=== PATIENT | female | born 1990 | race Caucasian/White ===

== ENCOUNTER 2024-11-23 15:18 | Outpatient (AMB) | payer OTHER, SELFPAY ==
--- NOTE | 2024-11-23 15:22 | MHC.OFFVIS ---
Vital Signs 11/23/24 15:24 Height 5 ft 4.17 in Weight 214 lb 8 oz BMI 36.6 BP 124/86 Blood Pressure Location Lt brachial Position Sitting Pulse 69 Pulse Source Pulse Oximeter Pulse Oximetry (%) 98 Oxygen Delivery Method Room Air Intake Visit Reasons: Obstructive sleep apnea Allergies amlodipine Allergy (Intermediate, Verified 11/23/24 15:27) Palpitations cefaclor (From Ceclor) Allergy (Intermediate, Verified 11/23/24 15:27) Hives HPI HPI Obstructive sleep apnea: Details: Janelle is a pleasant 34 year old female, never smoker, with underlying HTN. She was referred by PCP for pulmonary evaluation due to suspected sleep apnea. She has never had a sleep study before, but a recent hospital visit for hypertension revealed oxygen desaturation into the 70s upon falling asleep, accompanied by snoring and choking episodes. The patient reports lifelong snoring described as loud, with worsening over time, and poor sleep quality characterized by frequent awakenings and daytime somnolence. The patient has a history of hypertension, which was diagnosed during a hospital visit in June. She experiences constant morning headaches, which have improved with blood pressure medication. The patient reports respiratory symptoms, including shortness of breath and coughing, which have persisted since a COVID-19 infection in May 2019. Although does recall dyspnea with exertion as a child, never diagnosed with asthma. She has a history of exposure to secondhand smoke and mold, which may contribute to her respiratory issues. Recent CXR 06/2024 unremarkable. The patient has a family history of asthma and reports seasonal allergies, which were not thoroughly tested in childhood. [facility] Social History (Updated 11/23/24 @ 15:26 by Karlee Graham [facility]) Patient Tobacco Use Status: Never used Tobacco Review of Systems Const Denies chills, Denies excessive sweating, Denies fever(s) and Denies night sweats Eyes Denies dry eyes, Denies irritation and Denies itchy eyes ENT Reports Normal hearing present, Denies nasal congestion, Denies nasal discharge, Denies post nasal drip and Denies sore throat Card Denies chest pain, Denies chest pain at rest, Denies chest pain with activity, Denies claudication, Denies leg edema, Denies orthopnea and Denies paroxysmal nocturnal dyspnea Resp Denies chest congestion, Denies excessive phlegm production, Denies pain on inspiration, Denies pain with cough, Denies stridor and Denies wheezing Musc Denies myalgias Neuro Reports Normal hearing present Endo Denies excessive sweating Jared/Lymph Denies lymphadenopathy Aller/Immun Denies itchy eyes, Denies seasonal rhinorrhea and Denies wheezing Physical Exam Vital Signs: Last Vital Signs Pulse 69 11/23/24 15:24 BP 124/86 11/23/24 15:24 Pulse Ox 98 11/23/24 15:24 Oxygen Delivery Method Room Air 11/23/24 15:24 BMI result Body Mass Index 36.6 Const General: cooperative, healthy appearing, comfortable, no acute distress, well developed and alert Nutritional Appearance: obese Orientation/consciousness: patient oriented x3 Limitations: no limitations HEENT Head: Yes normal to inspection, Yes normocephalic and Yes atraumatic Ears: hearing grossly normal bilaterally and external ears normal Eyes General: appearance normal, both eyes and all related structures Eyelids: Yes eyelids normal Sclerae: sclerae normal EOM: EOMs intact bilaterally Neck Neck: Yes normal visual inspection and Yes no lymphadenopathy Lymphatic: no lymphadenopathy noted Chest Chest palpation & inspection: normal inspection of the chest Resp Effort & Inspection: normal respiratory effort, able to speak in complete sentences, no audible wheezes, no cough, no stridor, not tachypneic, no tripod positioning and no use of accessory muscles Auscultation: clear to auscultation bilaterally Cardio Jugular venous distension: no JVD Rate: regular rate Rhythm: regular rhythm Skin Other: warm, dry General skin exam: no rashes or lesions noted Neuro General: patient oriented x3 Cranial nerves: Yes Normal hearing present Cognition (Neuro): normal cognition Gait exam (Neuro): Normal gait present Extrem General: Yes normal to inspection, Yes capillary refill normal, Yes no clubbing, cyanosis or edema and Yes no pedal edema Psych Appearance: grossly normal and well kempt Speech and movement: Normal speech and movement present and Clear speech present Affect: normal affect Attitude: cooperative Thought process: Normal thought process present Thought content: Normal thought content present Insight: Good insight present (Psych) Judgement: Good judgement present (Psych) Assessment & Plan Assessment & Plan (1) Daytime somnolence: Code(s): R40.0 - Somnolence Category: Medical (2) Witnessed episode of apnea: Code(s): R06.81 - Apnea, not elsewhere classified Category: Medical (3) Dyspnea on exertion: Code(s): R06.09 - Other forms of dyspnea Category: Medical (4) Environmental allergies: Code(s): Z91.09 - Other allergy status, other than to drugs and biological substances Category: Medical Plan Janelle presents for pulmonary evaluation for ongoing symptoms suggestive of HILDA. The patient will undergo a home sleep study to confirm the diagnosis of sleep apnea. If the study is positive, treatment options include CPAP therapy or an in-lab sleep study for further evaluation depending on results. A PFT will be scheduled to evaluate for asthma, given the patient's respiratory symptoms and family history.The patient reports seasonal allergies and has been advised to undergo allergy testing to identify specific allergens that may be triggering respiratory symptoms. All questions were answered and patient is in agreement of plan. Will follow up to review results or sooner if needed. Orders: Orders RT home sleep study Today R06.81 - Apnea, not elsewhere classified, R40.0 - Somnolence PFT pulmonary function test Today R06.09 - Other forms of dyspnea Coding Level of Care Code New Pt Level 4 (74178) Diagnoses Daytime somnolence R40.0 Witnessed episode of apnea R06.81 Dyspnea on exertion R06.09 Environmental allergies Z91.09
[2024-11-23 15:24] VITALS: BP 124/86; PULSE 69; O2SAT 98; BMI 36.6
== END 2024-11-23 15:57 | disposition home or self-care (01) ==
LOC: HO.HPSW 15:18
PROVIDERS: PCP Family Medicine; Visit Provider Nurse Practitioner Family
DX: R40.0 Somnolence (principal); R06.81 Apnea, not elsewhere classified; R06.09 Other forms of dyspnea; Z91.09 Other allergy status, other than to drugs and biological substances
CPT/HCPCS: 99204

== ENCOUNTER 2025-01-01 15:38 | Outpatient (REF) | payer OTHER, SELFPAY ==
--- OUTSIDE RECORDS SUMMARY | 2024-12-29 23:59 | XMS_ITS | Continuity of Care Document ---
Author Organization [facility] Address [address] [place] [address]- Care Team Providers Care Milk Bottler Name Role Phone Jean RAVI, Elise Miramontes Primary Care Physician Encounter [facility] Date(s): 11/29/24 - 12/29/24 [facility]/[address] [address]- Encounter Type: Triage Allergies, Adverse Reactions, Alerts Substance Criticality Severity Reaction Reaction Severity Status Ceclor Active Mushrooms 1 Active amLODIPine Unable to assess criticality Persistent Moderate Active Kiwi 2 Active 1severe abd pain 2severe abd pain Immunizations Given and Recorded Vaccine Date Status Refusal Reason SARS-CoV-2 (COVID-19) mRNA-1273 vaccine 03/06/21 R ecorded SARS-CoV-2 (COVID-19) mRNA BNT-162b2 vac 07/07/20 Recorded SARS-CoV-2 (COVID-19) mRNA BNT-162b2 vac 06/15/20 Recorded Medications famotidine 10 mg oral tablet 1 tablet = 10 mg, By Mouth, 2 times a day, 1 hour before meals, # 60 tablet, 0 Refills, Maintenance, 11/06/24 2:57:00 PM EDT, Tablet, [facility]/pharmacy #[id number], Partial fill upon patient request if the prescription is for a schedule II opioid drug., 163, cm, 11/06/24 14:34:00 EDT, Height, 101.1, kg, 10/16/24 10:08:00 EDT, Dry Weight Start Date: 11/06/24 Stop Date: 12/06/24 Status: Ordered Medication Dispense Status: Completed Quantity: 60.0 Unit: tablet Total Allowed Fills: 1 Fills Dispensed: 0 Indications: Unspecified abdominal pain; levothyroxine 0.1 mg oral tablet 1 tablet = 100 mcg, By Mouth, Daily, with plenty of water on an empty stomach, # 30 tablet, 3 Refills, Maintenance, 12/19/24 5:39:00 PM EDT, Tablet, [facility]/pharmacy #[id number], Partial fill upon patient request if the prescription is for a schedule II opioid drug., 163, cm, 12/19/24 17:19:00 EDT, Height, 99.6, kg, 11/16/24 15:23:00 EDT, Dry Weight Start Date: 12/19/24 Stop Date: 04/18/25 Status: Ordered Medication Dispense Status: Completed Quantity: 30.0 Unit: tablet Total Allowed Fills: 4 Fills Dispensed: 0 Indications: Hypothyroidism, unspecified; metoprolol 25 mg oral tablet, extended release 25 mg, 1, tablet, By Mouth, 2 times a day, do not crush or chew, # 180 tablet, Refills 1, Tot. Refills 1, Maintenance, 11/30/24 11:22:00 AM EDT, Route to Pharmacy Electronically, [facility]/pharmacy #[id number], Partial fill upon patient request if the prescription is for a schedule II opioid drug., 163, cm, 11/16/24 15:23:00 EDT, Height, 99.6, kg, 11/16/24 15:23:00 EDT, Dry Weight Start Date: 11/30/24 Stop Date: 05/29/25 Status: Ordered Medication Dispense Status: Completed Quantity: 180.0 Unit: tablet Total Allowed Fills: 2 Fills Dispensed: 0 Indications: Essential (primary) hypertension; Palpitations; Mirena 52 mg intrauterine device 1 each = 52 mg, Once, 0 Refills, Maintenance, 11/27/18 12:21:08 PM EDT Start Date: 11/27/18 Status: Ordered Medication Dispense Status: Completed Total Allowed Fills: 1 Fills Dispensed: 0 Problem List Condition Confirmation Course Effective Dates Status H ealth Status Informant HTN (hypertension) Confirmed Active Hypothyroidism Confirmed Active Elevated blood pressure reading Confirmed Active Severe obesity (BMI 35.0-39.9) with comorbidity Confirmed Active Social History Social History Type Response Smoking Status Never (less than 100 in lifetime) entered on: 11/27/18 Sex Sex Representation Female (finding) Patient Care team information Care Team Personnel Name: Elise Pena NP Position: S PCO Associate Professional Member Role: PCP Address: [address] [place] [address] Telecom: Care Team Related Persons Name: GILDARDO NICHOLS Name: JESSICA MENCHACA Insurance Providers Guarantor name: ROWAN Health Plan Information #: 1 Payer: [facility] SELECT PPO Payer Identifier: ROWAN Member Number: [id number] Group Number: [id number] Subscriber Identifier: Relationship to Subscriber: self Coverage Type: NA Coverage Verification Date: Telecom: Address: Health Plan Information #: 2 Payer: [facility] SELECT HMO Payer Identifier: ROWAN Member Number: [id number] Group Number: [id number] Subscriber Identifier: Relationship to Subscriber: self Coverage Type: Commercial Managed Care - HMO Coverage Verification Date: Telecom: Address:
--- NOTE | 2025-01-01 16:04 | PFT_ITS ---
Flows: FEV1: 108 % of predicted at 3.43 L FVC: 116 % of predicted at 4.40 L FEV1/FVC: 78 % Bronchodilator response: Present Volumes: Total lung capacity: 104 % of predicted at 5.38 L Residual volume: 98 % of predicted at 1.18 L Slow vital capacity: 105 % of predicted at 4.20 L Expiratory reserve volume: 68 % of predicted at 0.88 L Diffusion capacity: Normal Impression: No obstructive or restrictive ventilatory defect. Positive bronchodilator response. Decreased expiratory reserve volume suggests extrathoracic restriction likely secondary to abdominal obesity. MTDD
[2025-01-01 16:49] VITALS: PULSE 75
== END 2025-01-01 15:39 | disposition home or self-care (01) ==
LOC: HO.RESP 15:38
PROVIDERS: PCP Family Medicine; Visit Provider Nurse Practitioner Family
DX: R06.09 Other forms of dyspnea (principal)
CPT/HCPCS: 94060; 94640; 94727; 94729

== ENCOUNTER → 2025-01-01 16:04 | Outpatient (BNV) | payer OTHER, SELFPAY | PROVIDERS: PCP Family Medicine; Visit Provider Internal Medicine Pulmonary Disease | DX: R06.09 Other forms of dyspnea (principal) | CPT/HCPCS: 94060; 94727; 94729 ==

== ENCOUNTER → 2025-02-06 14:53 | Outpatient (REF) | payer OTHER, SELFPAY | LOC: HO.SL 14:53 | PROVIDERS: PCP Family Medicine; Visit Provider Nurse Practitioner Family | DX: R40.0 Somnolence (principal); G47.33 Obstructive sleep apnea (adult) (pediatric) | CPT/HCPCS: 95806 ==

== ENCOUNTER → 2025-02-09 15:03 | Outpatient (BNV) | payer OTHER, SELFPAY | PROVIDERS: PCP Family Medicine; Visit Provider Psychiatry & Neurology Neurology | DX: G47.33 Obstructive sleep apnea (adult) (pediatric) (principal) | CPT/HCPCS: 95806 ==

== ENCOUNTER 2025-03-01 15:09 | Outpatient (AMB) | payer OTHER, SELFPAY ==
[2025-03-01 15:11] VITALS: BP 120/82; PULSE 72; O2SAT 98; BMI 37.6
--- NOTE | 2025-03-01 15:11 | A.OFFVIS_ITS ---
Vital Signs 03/01/25 15:11 Height 5 ft 4.17 in Weight 220 lb 6 oz BMI 37.6 BP 120/82 Blood Pressure Location Lt brachial Position Sitting Pulse 72 Pulse Source Pulse Oximeter Pulse Oximetry (%) 98 Oxygen Delivery Method Room Air Intake Visit Reasons: hilda Allergies amlodipine Allergy (Intermediate, Verified 03/01/25 15:14) Palpitations cefaclor (From Ceclor) Allergy (Intermediate, Verified 03/01/25 15:14) Hives HPI Comments Details: Janelle is a pleasant 34 year old female, never smoker, with underlying HTN. She was initially referred by PCP for pulmonary evaluation due to suspected sleep apnea after a recent hospital visit for hypertension revealed oxygen desaturation into the 70s upon falling asleep, accompanied by snoring and choking episodes. Today she presents for follow-up to discuss results of a recent breathing test and a home sleep study. She began noticing increased respiratory symptoms, including shortness of breath and chest tightness, after having COVID-19 multiple times. Her symptoms are particularly prominent after exercise, such as going up and down stairs, after which she requires a few minutes to recover. While her chest tightness has improved, it is still present, and she reports wheezing only when she has a cold. She denies any recent visits to urgent care for her breathing symptoms. Pulmonology History - History of respiratory symptoms, including shortness of breath and chest tightness, following COVID-19 infection. - Reports wheezing only when sick with a cold. - Recent pulmonary function test suggested asthma with a 15% improvement post- albuterol, hyperinflation (lung volume 104%), and elevated diffusion capacity (105%). - Recent home sleep study diagnosed severe obstructive sleep apnea (AHI 48.7) with associated nocturnal hypoxemia (SpO2 estrella of 73%). Results - Pulmonary Function Test: Results are suggestive of asthma. - There was a 15% improvement with albuterol. - Lung volumes were slightly elevated at 104%, suggesting hyperinflation. - Diffusion capacity was slightly elevated at 105%. - Home Sleep Study: The patient completed a two-night study. - Results show severe obstructive sleep apnea with an apnea-hypopnea index (AHI) of 48.7 events per hour. - Central events were minimal at 0.7 per hour. - There was moderate nocturnal hypoxemia, with an oxygen saturation estrella of 73% and an average of 92%. - The patient spent 1.5 hours with oxygen saturation below 88%. - Sleep efficiency was 93%, with 21% of sleep time in REM. [facility] Social History Patient Tobacco Use Status: Never used Tobacco Review of Systems Narrative Const Denies chills, Denies excessive sweating, Denies fever(s) and Denies night sweats Eyes Denies dry eyes, Denies irritation and Denies itchy eyes ENT Reports Normal hearing present, Denies nasal congestion, Denies nasal discharge, Denies post nasal drip and Denies sore throat Card Denies chest pain, Denies chest pain at rest, Denies chest pain with activity, Denies claudication, Denies leg edema, Reports dyspnea on exertion, Denies orthopnea and Denies paroxysmal nocturnal dyspnea Resp Denies chest congestion, Reports cough, Denies hemoptysis, Denies excessive phlegm production, Denies pain on inspiration, Denies pain with cough, Reports dyspnea on exertion, Denies stridor and Denies wheezing Musc Denies myalgias Neuro Reports Normal hearing present Endo Denies excessive sweating Jared/Lymph Denies lymphadenopathy Aller/Immun Denies itchy eyes, Denies seasonal rhinorrhea and Denies wheezing Physical Exam Exam Exam: Vital Signs: Last Vital Signs Pulse 72 03/01/25 15:11 BP 120/82 03/01/25 15:11 Pulse Ox 98 03/01/25 15:11 Oxygen Delivery Method Room Air 03/01/25 15:11 BMI result Body Mass Index 37.6 Const General: cooperative, healthy appearing, comfortable, no acute distress, well developed and alert Nutritional Appearance: obese Orientation/consciousness: patient oriented x3 Limitations: no limitations HEENT Head: Yes normal to inspection, Yes normocephalic and Yes atraumatic Ears: hearing grossly normal bilaterally and external ears normal Eyes General: appearance normal, both eyes and all related structures Eyelids: Yes eyelids normal Sclerae: sclerae normal EOM: EOMs intact bilaterally Neck Neck: Yes normal visual inspection and Yes no lymphadenopathy Lymphatic: no lymphadenopathy noted Chest Chest palpation & inspection: normal inspection of the chest Resp Effort & Inspection: normal respiratory effort, able to speak in complete sentences, no audible wheezes, no cough, no stridor, not tachypneic, no tripod positioning and no use of accessory muscles Auscultation: clear to auscultation bilaterally Cardio Jugular venous distension: no JVD Rate: regular rate Rhythm: regular rhythm Skin Other: warm, dry General skin exam: no rashes or lesions noted Neuro General: patient oriented x3 Cranial nerves: Yes Normal hearing present Cognition (Neuro): normal cognition Gait exam (Neuro): Normal gait present Extrem General: Yes normal to inspection, Yes capillary refill normal, Yes no clubbing, cyanosis or edema and Yes no pedal edema Psych Appearance: grossly normal and well kempt Speech and movement: Normal speech and movement present and Clear speech present Affect: normal affect Attitude: cooperative Thought process: Normal thought process present Thought content: Normal thought content present Insight: Good insight present (Psych) Judgement: Good judgement present (Psych) Assessment & Plan Assessment & Plan (1) Severe obstructive sleep apnea: Code(s): G47.33 - Obstructive sleep apnea (adult) (pediatric) Category: Medical (2) Asthma: Code(s): J45.909 - Unspecified asthma, uncomplicated Category: Medical (3) Nocturnal hypoxemia: Code(s): G47.34 - Idiopathic sleep related nonobstructive alveolar hypoventilation Category: Medical Plan Reviewed the patient's recent pulmonary function test results with her, explaining that they are suggestive of asthma, given the positive bronchodilator response. Recommended starting a once-daily steroid inhaler and counseled her on the importance of rinsing her mouth after use to prevent oral thrush. Given her history of pre-glaucoma, advised her to inform her eye doctor about this new medication. Discussed the results of her home sleep study, which confirmed a diagnosis of severe obstructive sleep apnea with an AHI of 48.7 and moderate nocturnal hypoxemia. We discussed the plan to proceed with an in-lab sleep study for formal CPAP titration, given severe HILDA and nocturnal hypoxemia to ensure proper pressures. To expedite treatment, will also order a CPAP machine to be set on APAP mode with pressures [id number] in the interim. We had an extensive discussion about CPAP therapy, including proper use and maintenance, the 90-day trial period, and strategies for comfort, such as using Flonase for nasal congestion. Outlined the plan for a follow-up visit in 6-8 weeks to review the in-lab study results and make any necessary adjustments to her treatment plan. Also informed her that after she is established on CPAP, we will perform another overnight oximetry test to ensure her oxygen levels are normalized. All questions were answered and patient is in agreement of plan. Will follow up in 6-8 weeks or sooner if needed. Patient Instructions - You will be starting a new steroid inhaler for asthma, to be used once a day. - Please rinse your mouth with water after each use to prevent a mouth infection. - If the inhaler is not covered by your insurance or is too expensive, please call our office. - Inform your eye doctor that you have started a steroid inhaler, as you have a history of pre-glaucoma. - We will schedule you for an in-lab sleep study. - Please call your insurance to confirm coverage for this test. - We have ordered a CPAP machine for you. - When it arrives, be sure to clean it regularly and use only distilled water. - If you experience nasal stuffiness from the CPAP, you can use Flonase nasal spray before bed. - Work with the [facility] to find a comfortable mask during your 90-day trial period. - Please schedule a follow-up appointment in 6 to 8 weeks to go over your test results. - Call our office if you have any questions or concerns. Patient was informed and verbally consented to the use of an ambient scribe for clinic note documentation during this visit. Orders: Orders RT PSG in-lab sleep titration Today G47.33 - Obstructive sleep apnea (adult) (pediatric), G47.34 - Idiopathic sleep related nonobstructive alveolar hypoventilation Medications: New fluticasone furoate 100 mcg/actuation (Arnuity Ellipta) 1 inh inhalation DAILY 30 ea 3RF Coding Level of Care Code Est Pt Level 4 (26468) Add On Problem Visit Only Diagnoses Severe obstructive sleep apnea G47.33 Asthma J45.909 Nocturnal hypoxemia G47.34
== END 2025-03-01 15:51 | disposition home or self-care (01) ==
LOC: HO.HPSW 15:10
PROVIDERS: PCP Family Medicine; Visit Provider Nurse Practitioner Family
DX: G47.33 Obstructive sleep apnea (adult) (pediatric) (principal); J45.909 Unspecified asthma, uncomplicated; G47.34 Idiopathic sleep related nonobstructive alveolar hypoventilation
CPT/HCPCS: 99214; G2211